=== PATIENT | female | born 1990 | race Caucasian/White ===

== ENCOUNTER 2017-03-07 14:23 | Inpatient (IN) | payer BC ==
[~2017-03-07] VITALS: Ht 162.6 cm; Wt 96.6 kg
[~2017-03-07 14:23] MED LIST: EPINEPHrine HCL 0.5 ML NEB NEB ONE; methylPREDNISolone SOD SUCC 125 MG/2 ML VL ONE
[2017-03-07] MEDS ORDERED: EPINEPHrine HCL 1 MG/1 ML AMP SC ONE (14:30)
[2017-03-07] MEDS ORDERED: methylPREDNISolone SOD SUCC 125 MG/2 ML VL IM ONE (14:30)
[2017-03-07] MEDS ORDERED: SODIUM CHLORIDE 0.9% 1,000 ML IV ONE (15:05)
[2017-03-07 15:21] LABS: Basophils # (auto) 0.1 uL; Basophils % (auto) 0.5 % (0.0-2.0); CONDITION Y; Eosinophils # (auto) 0.3 uL; Eosinophils % (auto) 2.1 % (0.0-7.0); Hematocrit 42.5 % (36.0-46.0); Hemoglobin 14.4 g/dL (12.2-16.2); Lymphocytes % (auto) 40.5 % (10.0-50.0); Mean Corpuscular Hemoglobin 30.7 pg (28.0-32.0); Mean Corpuscular Hgb Conc. 33.9 g/dL (32.0-36.0); Mean Corpuscular Volume 90.6 fL (80.0-100.0); Mean Platelet Volume 9.6 fL (7.4-10.4); Monocytes # (auto) 0.7 uL; Monocytes % (auto) 5.6 % (0.0-12.0); Neutrophils # (auto) 6.4 uL; Neutrophils % (auto) 51.3 % (37.0-80.0); Platelet Count (auto) 335 10^3/uL (140-450); Red Cell Distribution Width 13.1 % (11.6-16.0); White Blood Cell 12.4 10^3/uL (4.4-10.8)
[2017-03-07 15:27] LABS: Albumin 4.4 g/dL (3.4-5.0); Anion Gap 8 (5-15); BUN/Creatinine Ratio 10.1; Blood Urea Nitrogen 8 mg/dL (7-18); Calcium 8.7 mg/dL (8.5-10.1); Carbon Dioxide 22 mmol/L (21-32); Chloride 111 mmol/L (98-107); GFR African American 113 mL/min; GFR Non-African American 94 mL/min; Glucose 78 mg/dL (74-106); Potassium 3.8 mmol/L (3.5-5.1); Sodium 141 mmol/L (136-145)
[2017-03-07 15:33] LABS: Alkaline Phosphatase 118 U/L (45-117); Aspartate Aminotransferase 16 U/L (15-37); Bilirubin, Total 0.3 mg/dL (0.2-1.0); Total Protein 8.2 g/dL (6.4-8.2)
[2017-03-07 15:42] LABS: Urine Bilirubin Negative (Negative); Urine Blood Negative /uL (Negative); Urine Color Colorless (Yellow); Urine Glucose Normal (Normal); Urine Ketone Negative (Negative); Urine Nitrite Negative (Negative); Urine RBC <1 /hpf (0 - 4); Urine Squamous Epithelial Cell FEW /hpf (<5); Urine Urobilinogen Normal (Negative)
[2017-03-07 15:48] LABS: INR 0.95 (0.9-1.15); Partial Thromboplastin Time 28.2 sec (22.64-33.71); Prothrombin Time 10.3 sec (9.37-12.3)
[2017-03-07] MEDS ORDERED: ACETAMINOPHEN 500 MG TAB PO PRN (16:45)
[2017-03-07] MEDS ORDERED: LACTULOSE 20Gm/30ML SOLN PO PRN (16:45)
[2017-03-07] MEDS ORDERED: PROMETHAZINE HCL 25 MG/ML 1ML IV PRN (16:45)
[2017-03-07] MEDS ORDERED: TEMAZEPAM 15 MG CAP PO PRN (16:45)
[2017-03-07] MEDS ORDERED: NITROGLYCERIN 0.4 MG SL TAB SL PRN (16:45)
[2017-03-07] MEDS ORDERED: MORPHINE SULF INJ 2 MG/ML SYRINGE 1ML IV PRN ×2 (16:45)
[2017-03-07] MEDS ORDERED: FAMOTIDINE (10MG/ML) 2ML VL IV ONE (16:45)
[2017-03-07] MEDS ORDERED: LORazepam 0.5 MG TAB PO PRN (16:45)
[2017-03-07] MEDS ORDERED: HYDROcodone-ACET 5/325MG TAB PO PRN (16:45)
[2017-03-07] MEDS: SODIUM CHLORIDE 0.9% 1,000 ML IV SCH (17:15)
[2017-03-07] MEDS ORDERED: ALBUTEROL SULF 2.5 MG/0.5ML(0.5%) NEB SOLN NEB PRN (17:15)
[2017-03-07] MEDS: ALBUTEROL SULF 2.5 MG/0.5ML(0.5%) NEB SOLN NEB SCH (18:23)
[2017-03-07] MEDS: methylPREDNISolone SOD SUCC 40 MG/ML VL IV SCH ×2 (18:54→23:26)
[2017-03-07 19:21] VITALS: BP 105/73
[2017-03-07] MEDS ORDERED: ELET20TA PO (20:00)
[2017-03-07] MEDS: FAMOTIDINE (10MG/ML) 2ML VL IV SCH (21:27)
[2017-03-07 22:02] VITALS: BP 105/73
[2017-03-08] MEDS: ALBUTEROL SULF 2.5 MG/0.5ML(0.5%) NEB SOLN NEB SCH ×2 (00:20→07:05)
[2017-03-08] MEDS: SODIUM CHLORIDE 0.9% 1,000 ML IV SCH (03:15)
[2017-03-08 05:10] VITALS: BP 104/58
[2017-03-08] MEDS: methylPREDNISolone SOD SUCC 40 MG/ML VL IV SCH ×2 (05:51→12:00)
[2017-03-08 06:31] LABS: Basophils # (auto) 0 uL; Basophils % (auto) 0.1 % (0.0-2.0); Eosinophils # (auto) 0 uL; Hematocrit 37.9 % (36.0-46.0); Hemoglobin 12.7 g/dL (12.2-16.2); Lymphocytes # (auto) 1.6 uL; Lymphocytes % (auto) 10.3 % (10.0-50.0); Mean Corpuscular Hemoglobin 30.6 pg (28.0-32.0); Mean Corpuscular Hgb Conc. 33.5 g/dL (32.0-36.0); Mean Corpuscular Volume 91.1 fL (80.0-100.0); Mean Platelet Volume 8.8 fL (7.4-10.4); Monocytes # (auto) 0.2 uL; Monocytes % (auto) 1.1 % (0.0-12.0); Neutrophils # (auto) 14.1 uL; Neutrophils % (auto) 88.5 % (37.0-80.0); Platelet Count (auto) 249 10^3/uL (140-450); Red Cell Distribution Width 13.4 % (11.6-16.0); White Blood Cell 15.9 10^3/uL (4.4-10.8)
[2017-03-08 09:55] VITALS: BP 122/64
[2017-03-08] MEDS: FAMOTIDINE (10MG/ML) 2ML VL IV SCH (10:00)
== END 2017-03-08 12:45 | disposition home or self-care (01) | DRG 923 ==
LOC: ER 14:25 → TELE 14:26 → TELE-CENTR 18:45
PROVIDERS: ADMIT Internal Medicine; ATTEND Internal Medicine
DX: T78.1XXA Other adverse food reactions, not elsewhere classified, initial encounter (principal); D72.829 Elevated white blood cell count, unspecified; G43.909 Migraine, unspecified, not intractable, without status migrainosus; X58.XXXA Exposure to other specified factors, initial encounter; T44.5X5A Adverse effect of predominantly beta-adrenoreceptor agonists, initial encounter; T38.0X5A Adverse effect of glucocorticoids and synthetic analogues, initial encounter; Y92.89 Other specified places as the place of occurrence of the external cause; Z82.5 Family history of asthma and other chronic lower respiratory diseases; Z82.49 Family history of ischemic heart disease and other diseases of the circulatory system; Z91.018 Allergy to other foods
CPT/HCPCS: 36415; 71010; 80053; 81001; 84484; 85025; 85610; 85652; 85730; 87086; 94640; 96361; 96372; 96374; 96375; J0171; J3490